=== PATIENT | female | born 1935 | race African-American/Black ===

== ENCOUNTER 2016-11-09 16:09 | Emergency (ER) | payer MEDICARE, OTHER ==
[~2016-11-09] VITALS: Ht 160 cm; Wt 59.0 kg
--- NOTE | 2016-11-09 16:49 | Emergency Room Report ---
History of Present Illness General Chief Complaint: Edema Source: Patient Present Illness HPI The patient is an 81-year-old female brought in by cousin for right leg pain which has been ongoing for the past year. Pain has been worsening. It is described as a 10 out of 10 sharp sensation to the mid calf. She has also noticed swelling to the area and now an ulcer to the outside of the ankle. She has not been treated for this yet. Pain is worse with walking. She denies any other symptoms including N, V, F, chills, SOB, cough, numbness/tingling Allergies: Coded Allergies: PENICILLINS (Verified Allergy, Unknown, 11/09/16) Patient History Past Medical History: see triage record Pertinent Family History: none Now: No Reviewed Nursing Documentation: PMH: Agreed, PSxH: Agreed Nursing Documentation-PMH Past Medical History: No Stated History Review of Systems All Other Systems: negative except mentioned in HPI Physical Exam Vital Signs Date Time Temp Pulse Resp B/P Pulse Ox O2 Delivery O2 Flow Rate FiO2 11/09/16 16:37 98.4 69 15 155/84 97 Room Air Sp02 EP Interpretation: reviewed, normal General Appearance: no apparent distress, alert, GCS 15, non-toxic Head: normocephalic, atraumatic Eyes: bilateral eye PERRL, bilateral eye normal inspection ENT: hearing grossly normal, normal pharynx, no angioedema, normal voice Neck: full range of motion, supple/symm/no masses Respiratory: chest non-tender, lungs clear, normal breath sounds, speaking full sentences Musculoskeletal: normal range of motion, calf tenderness, inflammation, swelling, tender - diffuse R calf tenderness Neurologic: alert, oriented x3, responsive, motor strength/tone normal, sensory intact, speech normal Psychiatric: judgement/insight normal, memory normal, mood/affect normal, no suicidal/homicidal ideation Skin: other - erythema to distal R lower leg Lymphatic: no adenopathy Medical Decision Making PA Attestation Dr. Abreu is my supervising physician. Patient management was discussed with my supervising physician Diagnostic Impression: Primary Impression: Cellulitis Qualified Codes: L03.115 - Cellulitis of right lower limb ER Course The patient is an 81-year-old female brought in by cousin for right leg pain which has been ongoing for the past year. Ddx considered include but not limited to cellulitis, DVT, ulcer, abscess PE: vitals WNL. NAD R. lower leg: There is diffuse tenderness to palpation. Erythema to the distal region. Skin warm and dry. Pitting edema diffusely. SILT. There is a 2cm ulcer to the R lateral lower leg with drainage. DVT study is unremarkable. The patient is given IV antibiotics and is informed that she will need to be admitted. She has declined and will sign out AMA. She understands the risks involved including loss of limb and . She is given ER precautions and a prescription for clindamycin. Laboratory Tests Test 11/09/16 17:17 White Blood Count 7.3 K/UL (4.8-10.8) Red Blood Count 3.85 M/UL (4.20-5.40) L Hemoglobin 8.9 G/DL (12.0-16.0) L Hematocrit 28.2 % (37.0-47.0) L Mean Corpuscular Volume 73 FL (80-99) L Mean Corpuscular Hemoglobin 23.1 PG (27.0-31.0) L Mean Corpuscular Hemoglobin Concent 31.5 G/DL (32.0-36.0) L Red Cell Distribution Width 18.2 % (11.6-14.8) H Platelet Count 248 K/UL (150-450) Mean Platelet Volume 7.1 FL (6.5-10.1) Neutrophils (%) (Auto) 61.4 % (45.0-75.0) Lymphocytes (%) (Auto) 19.2 % (20.0-45.0) L Monocytes (%) (Auto) 16.0 % (1.0-10.0) H Eosinophils (%) (Auto) 2.9 % (0.0-3.0) Basophils (%) (Auto) 0.6 % (0.0-2.0) Sodium Level 140 mEQ/L (135-145) Potassium Level 3.9 mEQ/L (3.4-4.9) Chloride Level 99 mEQ/L (98-107) Carbon Dioxide Level 26 mEQ/L (20-30) Anion Gap 15 (5-15) Blood Urea Nitrogen 19 mg/dL (7-23) Creatinine 1.0 mg/dL (0.5-0.9) H Estimate Glomerular Filtration Rate mL/min (>60) Glucose Level 106 mg/dL (74-106) Lactic Acid Level 1.90 mmol/L (0.66-2.22) Calcium Level 9.9 mg/dL (8.6-10.2) Total Bilirubin 0.2 mg/dL (0.0-1.2) Aspartate Amino Transferase (AST) 23 U/L (5-40) Alanine Aminotransferase (ALT) 16 U/L (3-33) Alkaline Phosphatase 85 U/L (35-104) Creatine Kinase MB 6.4 ng/mL (< 3.8) H Total Protein 7.7 g/dL (6.6-8.7) Albumin 4.2 g/dL (3.5-5.2) Globulin 3.5 g/dL Albumin/Globulin Ratio 1.2 (1.0-2.7) Lab Results Impression Unremarkable CT/MRI/US Diagnostic Results CT/MRI/US Diagnostic Results : Imaging Test Ordered: venous duplex of R leg Impression No thrombosis. Unremarkable Last Vital Signs Date Time Temp Pulse Resp B/P Pulse Ox O2 Delivery O2 Flow Rate FiO2 11/09/16 16:37 98.4 69 15 155/84 97 Room Air Status: improved Disposition: AGAINST MEDICAL ADVICE Condition: Stable Scripts Acetaminophen* (TYLENOL EXTRA STRENGTH*) 500 Mg Tablet 500 MG ORAL Q8H Y for Prn Headache/Temp > 101, #30 TAB 0 Refills Prov: CASANDRA DIALLO 11/09/16 Clindamycin Hcl* (CLINDAMYCIN HCL*) 150 Mg Capsule 150 MG ORAL TID, #30 CAP Prov: CASANDRA DIALLO 11/09/16 CASANDRA DIALLO Nov 09, 2016 16:49
[2016-11-09 17:29] LABS: BASOPHILS % (AUTO) 0.6 % (0.0-2.0); EOSINOPHILS % (AUTO) 2.9 % (0.0-3.0); LYMPHOCYTES % (AUTO) 19.2 % (20.0-45.0); MEAN CORPUSCULAR HEMOGLOBIN 23.1 PG (27.0-31.0); MEAN CORPUSCULAR HGB CONC 31.5 G/DL (32.0-36.0); MEAN CORPUSCULAR VOLUME 73 FL (80-99); MEAN PLATELET VOLUME 7.1 FL (6.5-10.1); NEUTROPHILS % (AUTO) 61.4 % (45.0-75.0); PLATELET COUNT 248 K/UL (150-450); RED BLOOD COUNT 3.85 M/UL (4.20-5.40); RED CELL DISTRIBUTION WIDTH 18.2 % (11.6-14.8); WHITE BLOOD COUNT 7.3 K/UL (4.8-10.8)
[2016-11-09 17:34] VITALS: BP 152/87
[2016-11-09 18:00] LABS: ALANINE AMINOTRANSFERASE 16 U/L (3-33); ALBUMIN/GLOBULIN RATIO 1.2 (1.0-2.7); ANION GAP 15 (5-15); ASPARTATE AMINO TRANSFERASE 23 U/L (5-40); CALCIUM 9.9 mg/dL (8.6-10.2); CARBON DIOXIDE 26 mEQ/L (20-30); CHLORIDE 99 mEQ/L (98-107); HEMOLYSIS 0; POTASSIUM 3.9 mEQ/L (3.4-4.9); SODIUM 140 mEQ/L (135-145); TOTAL PROTEIN 7.7 g/dL (6.6-8.7)
[2016-11-09 18:07] LABS: CKMB 6.4 ng/mL (< 3.8)
[2016-11-09] MEDS ORDERED: CLINDAMYCIN HC150 MG ORAL (19:48)
[2016-11-09] MEDS ORDERED: TYLENOL EXTRA500 MG ORAL (19:48)
[2016-11-09 20:24] VITALS: BP 149/85
[2016-11-09 20:25] VITALS: BP 152/87
--- NOTE | 2016-11-10 11:56 | Diagnostic Imaging Report ---
APPROVED REPORT CPT Code: 76063 Present Symptoms Lower Extremity Pain: Right Lower Extremity Edema: Right Comments: Ulcer at outer right ankle. Right calf edema. RIGHT LEG: Venous imaging reveals a patent deep venous system. There is no evidence of thrombus within the femoral, popliteal or tibial segments. The greater saphenous vein is also within normal limits. Doppler indicates normal spontaneous flow within these segments.
== END 2016-11-09 20:28 | disposition left against medical advice (07) ==
LOC: EMR 18:25
DX: L03.115 Cellulitis of right lower limb (principal); Z88.0 Allergy status to penicillin
CPT/HCPCS: 36415; 80053; 82553; 83605; 85025; 93971; 96374; S0077

== ENCOUNTER 2019-02-04 14:29 | Emergency (ER) | payer MEDICARE, OTHER ==
[~2019-02-04] VITALS: Ht 154.9 cm; Wt 72.6 kg
[~2019-02-04 14:29] MED LIST: CLINDAMYCIN HC150 MG ORAL; TYLENOL EXTRA500 MG ORAL
--- NOTE | 2019-02-04 15:23 | Emergency Room Report ---
History of Present Illness General Chief Complaint: Edema Source: Patient Present Illness HPI 83-year-old female presents with bilateral pedal edema patient has a history of ongoing pedal edema that comes and goes, symptoms started a few days ago, patient was seen by her doctor who told her to be evaluated, she had a chest x- ray as an outpatient that showed no signs of cardiomegaly, she currently denies any chest pain or shortness of breath, patient was brought in by fara Cano for evaluation, who does not want her admitted to the hospital. Patient has no other complaints other than her legs are swelling. She denies any aggravating or relieving factors of the bilateral pedal edema, she does endorse some fullness-like pain of her bilateral legs. Allergies: Coded Allergies: No Known Allergies (Unverified , 02/04/19) Patient History Past Medical History: see triage record Reviewed Nursing Documentation: PMH: Agreed; PSxH: Agreed Nursing Documentation-PMH Past Medical History: No History, Except For Hx Hypertension: Yes Review of Systems Constitutional: Denies: chills, fever Eye: Denies: blurred vision, double vision ENT: Denies: throat pain, nasal discharge Respiratory: Denies: cough, shortness of breath Cardiovascular: Reports: edema; Denies: chest pain, palpitations Gastrointestinal: Denies: abdominal pain, diarrhea, nausea, vomiting Genitourinary: Denies: dysuria, pain Musculoskeletal: Denies: back pain, muscle pain Skin: Denies: rash, lesions Neurological: Denies: headache, focal weakness Hematologic/Lymphatic: Denies: easy bleeding, easy bruising All Other Systems: negative except mentioned in HPI Physical Exam Vital Signs Date Time Temp Pulse Resp B/P (MAP) Pulse Ox O2 Delivery O2 Flow Rate FiO2 02/04/19 14:46 97.3 60 16 186/92 (123) 98 Room Air Sp02 EP Interpretation: reviewed, normal General Appearance: well appearing, no apparent distress, alert Head: normocephalic, atraumatic Eyes: bilateral eye PERRL, bilateral eye EOMI ENT: uvula midline, moist mucus membranes Neck: supple, thyroid normal, supple/symm/no masses Respiratory: lungs clear, no respiratory distress, no retraction, no accessory muscle use Cardiovascular #1: normal peripheral pulses, regular rate, rhythm, no gallop, no murmur, edema - 3+ pitting edema Gastrointestinal: non tender, soft, no guarding, no rebound Musculoskeletal: normal inspection Neurologic: alert, oriented x3 Psychiatric: mood/affect normal Skin: no rash, warm/dry Medical Decision Making Diagnostic Impression: Primary Impression: Edema ER Course 83-year-old female presents with bilateral pedal edema, possible CHF exacerbation, spoke with grandson who has power of oil burner mechanic, does not want patient admitted, patient was offered admission, however he wants to go home and trial Lasix and will follow up with Dr. England in 24 to 48 hours, patient in no acute distress, no liquid in the lungs, slight elevated CK which may be secondary to patient's edema. Joint Decision making was made with the family to observe outpatient care, will order Lasix for patient to be taken at home. On further discussion, grandson is staying with patient, because her worsening dementia has led her to not taking her Lasix. Jerome the grandson will stay with patient, return precautions discussed follow -up with PCP Laboratory Tests Test 02/04/19 16:30 White Blood Count 6.6 K/UL (4.8-10.8) Red Blood Count 3.85 M/UL (4.20-5.40) L Hemoglobin 11.2 G/DL (12.0-16.0) L Hematocrit 35.1 % (37.0-47.0) L Mean Corpuscular Volume 91 FL (80-99) Mean Corpuscular Hemoglobin 29.1 PG (27.0-31.0) Mean Corpuscular Hemoglobin Concent 31.9 G/DL (32.0-36.0) L Red Cell Distribution Width 16.3 % (11.6-14.8) H Platelet Count 204 K/UL (150-450) Mean Platelet Volume 8.9 FL (6.5-10.1) Neutrophils (%) (Auto) 75.4 % (45.0-75.0) H Lymphocytes (%) (Auto) 13.6 % (20.0-45.0) L Monocytes (%) (Auto) 9.3 % (1.0-10.0) Eosinophils (%) (Auto) 0.9 % (0.0-3.0) Basophils (%) (Auto) 0.8 % (0.0-2.0) Sodium Level 141 MMOL/L (136-145) Potassium Level 4.3 MMOL/L (3.5-5.1) Chloride Level 107 MMOL/L (98-107) Carbon Dioxide Level 27 MMOL/L (21-32) Anion Gap 7 mmol/L (5-15) Blood Urea Nitrogen 15 mg/dL (7-18) Creatinine 0.8 MG/DL (0.55-1.30) Estimate Glomerular Filtration Rate mL/min (>60) Glucose Level 107 MG/DL (74-106) H Calcium Level 9.7 MG/DL (8.5-10.1) Total Bilirubin 0.3 MG/DL (0.2-1.0) Aspartate Amino Transferase (AST) 26 U/L (15-37) Alanine Aminotransferase (ALT) 17 U/L (12-78) Alkaline Phosphatase 82 U/L (46-116) Total Creatine Kinase 334 U/L (26-308) H Creatine Kinase MB 4.9 NG/ML (0.0-3.6) H Creatine Kinase MB Relative Index 1.4 Troponin I 0.000 ng/mL (0.000-0.056) Pro-B-Type Natriuretic Peptide 450 pg/mL (0-125) H Total Protein 7.5 G/DL (6.4-8.2) Albumin 3.6 G/DL (3.4-5.0) Globulin 3.9 g/dL Albumin/Globulin Ratio 0.9 (1.0-2.7) L EKG Diagnostic Results EKG Time: 15:30 EP Interpretation: Normal sinus rhythm, right bundle branch block, rate 64, QTc 437 Rate: normal Rhythm: NSR ST Segments: no acute changes Chest X-Ray Diagnostic Results Chest X-Ray Diagnostic Results : Chest X-Ray Ordered: Yes # of Views/Limited/Complete: 1 View Indication: Other - edema EP Interpretation: Yes Interpretation: no consolidation, no effusion, no pneumothorax, no acute cardiopulmonary disease Impression: No acute disease Electronically Signed by: Devon Daugherty MD Last Vital Signs Date Time Temp Pulse Resp B/P (MAP) Pulse Ox O2 Delivery O2 Flow Rate FiO2 02/04/19 14:46 97.3 60 16 186/92 (123) 98 Room Air Disposition: HOME, SELF-CARE Condition: Stable Scripts Furosemide* (LASIX*) 20 Mg Tablet 20 MG ORAL DAILY, #30 TAB Prov: Devon Daugherty M.D. 02/04/19 Patient Instructions: Edema, Edema, [id number], Heart Failure, [id number] Additional Instructions: The patient was provided with discharge instructions, notified to follow-up with a primary care doctor and or specialist in the next 24-48 hours, and to return to the ED if they have worsening of their symptoms. Please note that this report is being documented using DRAGON technology. This can lead to erroneous entry secondary to incorrect interpretation by the dictating instrument. Please follow-up with Dr. England in 24 to 48 hours Devon Daugherty M.D. Feb 04, 2019 15:23
--- NOTE | 2019-02-04 15:36 | NUR ---
ED Nurse Note: PT BROUGHT IN TO ER TODAY FROM HOME BY GUME. AOX4. PER GRANDSON, PT HAS HAD BILATERAL LOWER LEG SWELLING EXACERBATION X 1 WEEK AGO. GRANDSON STATES THAT PT HAS HAD SWELLING FOR MANY YEARS AND WAS RECENTLY PRESCRIBED "A WATER PILL." GRANDSON STATES MEDICATIONS HELPED BUT THAT SWELLING RETURNED ABOUT A WEEK AGO. AT BEDSIDE, PT PRESENTS WITH PAINFUL BILATERAL LOWER LEG SWELLING WITH PITTING EDEMA. PT C/O 10/10 TO BILATERAL LOWER LEGS. CIRCULATION AND SENSATION INTACT, CAP REFILL <2 SECONDS. FULL ROM OF EXTREMITIES AND DIGITS. PT HYPERTENSIVE 200/[address] Ceja NOTIFIED.
--- NOTE | 2019-02-04 15:36 | NUR ---
Note undone in EDM - 02/04/19 at 1540 by VAUGHN ED Nurse Note: PT BROUGHT IN TO ER TODAY FROM HOME BY GUME. AOX4. PER GUME, PT HAS HAD BILATERAL LOWER LEG SWELLING EXACERBATION X 1 WEEK AGO. GUME STATES THAT PT HAS HAD SWELLING FOR MANY YEARS AND WAS RECENTLY PRESCRIBED "A WATER PILL." GUME STATES MEDICATIONS HELPED BUT THAT SWELLING RETURNED ABOUT A WEEK AGO. AT BEDSIDE, PT PRESENTS WITH PAINFUL BILATERAL LOWER LEG SWELLING WITH PITTING EDEMA. PT C/O 10/10 TO BILATERAL LOWER LEGS. CIRCULATION AND SENSATION INTACT, CAP REFILL <2 SECONDS. FULL ROM OF EXTREMITIES AND DIGITS.
[2019-02-04 15:40] VITALS: BP 200/98
--- NOTE | 2019-02-04 16:43 | Diagnostic Imaging Report ---
Indication: Chest pain Comparison: None A single view chest radiograph was obtained. Findings: No definite infiltrate or pulmonary vascular congestion identified. The heart is enlarged. The aorta is mildly enlarged consistent with atherosclerotic vascular disease. The bones are osteopenic. Impression: No acute disease
[2019-02-04 16:45] LABS: BASOPHILS % (AUTO) 0.8 % (0.0-2.0); EOSINOPHILS % (AUTO) 0.9 % (0.0-3.0); HEMATOCRIT 35.1 % (37.0-47.0); HEMOGLOBIN 11.2 G/DL (12.0-16.0); LYMPHOCYTES % (AUTO) 13.6 % (20.0-45.0); MEAN CORPUSCULAR VOLUME 91 FL (80-99); MONOCYTES % (AUTO) 9.3 % (1.0-10.0); NEUTROPHILS % (AUTO) 75.4 % (45.0-75.0); PLATELET COUNT 204 K/UL (150-450); RED BLOOD COUNT 3.85 M/UL (4.20-5.40); RED CELL DISTRIBUTION WIDTH 16.3 % (11.6-14.8); WHITE BLOOD COUNT 6.6 K/UL (4.8-10.8)
[2019-02-04 17:15] LABS: ANION GAP 7 mmol/L (5-15); BLOOD UREA NITROGEN 15 mg/dL (7-18); CALCIUM 9.7 MG/DL (8.5-10.1); CARBON DIOXIDE 27 MMOL/L (21-32); CHLORIDE 107 MMOL/L (98-107); CREATININE 0.8 MG/DL (0.55-1.30); POTASSIUM 4.3 MMOL/L (3.5-5.1); SODIUM 141 MMOL/L (136-145)
[2019-02-04 17:30] LABS: ALANINE AMINOTRANSFERASE 17 U/L (12-78); ALBUMIN 3.6 G/DL (3.4-5.0); ALBUMIN/GLOBULIN RATIO 0.9 (1.0-2.7); ALKALINE PHOSPHATASE 82 U/L (46-116); ASPARTATE AMINO TRANSFERASE 26 U/L (15-37); BILIRUBIN,TOTAL 0.3 MG/DL (0.2-1.0); CKMB 4.9 NG/ML (0.0-3.6); CREATINE KINASE 334 U/L (26-308)
[2019-02-04] MEDS ORDERED: FUROSEMIDE20 M1 ORAL (18:43)
--- NOTE | 2019-02-04 18:50 | NUR ---
ED Nurse Note: PT LAYING PEACEFULLY IN BED IN NAD. AOX4. GRANDSON AT BEDSIDE. PRESCRIPTION AND DISCHARGE PAPERWORK EXPLAINED TO PT. PT VERBALIZES UNDERSTANDING AND ALL QUESTIONS ANSWERED. PRESCRIPTION AND DISCHARGE GIVEN TO PT, IV AND ID WRISTBAND REMOVED. PT WALKED OUT OF ER WITH STEADY GAIT AND ALL BELONGINGS. PT HYPERTENSIVE - SYS BP 200. DR Ceja NOTIFIED. PT ASYMPTOMATIC AND OKAY FOR DC PER DR Ceja.
[2019-02-04 18:54] VITALS: BP 200/94
== END 2019-02-04 18:55 | disposition home or self-care (01) ==
LOC: EMR 18:45
DX: R60.0 Localized edema (principal); I10 Essential (primary) hypertension
CPT/HCPCS: 36415; 71045; 80053; 82550; 82553; 83880; 84484; 85025; 93005; 96374; 99284; J1940